=== PATIENT | female | born 1955 | race Caucasian/White ===

== ENCOUNTER 2021-05-10 12:31 | Emergency (ER) | payer OTHER ==
[~2021-05-10] VITALS: Ht 162.6 cm; Wt 97.7 kg
[2021-05-10 12:33] VITALS: TEMP 98
[2021-05-10 14:37] LABS: BASO # 0.1 (0.0-0.2); BASO % 0.3 % (0.0-2.0); EOS % 0.3 % (0-4.0); GRAN # 12.8 (1.4-6.5); GRAN % 82.4 % (42.2-75.2); HEMATOCRIT 41.5 % (37.0-47.0); HEMOGLOBIN 13.8 g/dl (12.5-16.0); LYMPH # 1.7 (1.2-3.4); LYMPH % 11.2 % (20.0-51.0); MEAN CELL VOLUME 82 fl (80.0-100.0); MEAN CORPUSCULAR HEMOGLOBIN 27 pg (27.0-31.0); MEAN CORPUSCULAR HGB CONC 33 g/dl (33.0-37.0); MEAN PLATELET VOLUME 8.8 fl (7.4-10.4); MONO # 0.8 (0.1-0.6); MONO % 5.3 % (1.7-9.3); PLATELET COUNT 386 K/mm3 (130-400); RED BLOOD COUNT 5.08 M/mm3 (4.10-5.30); REDCELL DISTRIBUTION WIDTH-CV 13.3 % (11.5-14.5)
[2021-05-10 14:45] LABS: INR 1.1 (0.8-3.0); PROTHROMBIN TIME 12.3 SECONDS (9.7-12.8)
[2021-05-10 14:50] LABS: ALANINE AMINOTRANSFERASE 22 U/L (4-34); ALBUMIN 4.4 gm/dL (3.5-5.0); ALKALINE PHOSPHATASE 72 U/L (50-136); ANION GAP 9 mmol/L (7-16); AST,SGOT 29 U/L (15-37); BILIRUBIN,TOTAL 0.6 mg/dL (0.0-1.0); BLOOD UREA NITROGEN 19 mg/dL (7-17); CALCIUM 9.7 mg/dL (8.4-10.2); CARBON DIOXIDE 21 mmol/L (22-30); CHLORIDE 106 mmol/L (98-107); CREATININE, serum 0.56 (0.52-1.25); GLUCOSE 127 mg/dL (74-106); POTASSIUM 4.1 mmol/L (3.4-5.0); SODIUM 136 mmol/L (137-145); TOTAL PROTEIN 7.7 gm/dL (6.4-8.2)
[2021-05-10 15:00] LABS: TROPONIN-I < 0.012 ng/mL (0.000-0.035)
[2021-05-10] MEDS ORDERED: NORCO 325 MG-51 TAB PO (15:34)
[2021-05-10] MEDS ORDERED: ZOFRAN 4MG T4 MG/TAB PO (15:48)
[2021-05-10 15:59] VITALS: BP 174/89; PULSE 71
== END 2021-05-10 15:59 | disposition home or self-care (01) ==
LOC: COL.ER 12:31
PROVIDERS: Nurse Practitioner Primary Care
DX: S20.212A Contusion of left front wall of thorax, initial encounter (principal); E11.649 Type 2 diabetes mellitus with hypoglycemia without coma; V47.5XXA Car driver injured in collision with fixed or stationary object in traffic accident, initial encounter
CPT/HCPCS: J2270; J2405; Q9967